=== PATIENT | male | born 1970 | race Caucasian/White ===

== ENCOUNTER → 2017-09-24 | Outpatient (CLI) | payer OTHER ==
[~2017-09-24] VITALS: Ht 176.5 cm; Wt 89.7 kg
[~2017-09-24] MED LIST: ALBU1AER9 INH; FEXO1TAB49 PO; METF-384 PO
[2017-09-24 12:44] VITALS: BP 102/71; PULSE 90; Ht 176.5 cm; Wt 89.7 kg
== END | disposition home or self-care (01) ==
LOC: C.NEUR 12:05
PROVIDERS: ATTEND Internal Medicine Pulmonary Disease
DX: R06.83 Snoring (principal); G47.19 Other hypersomnia; R53.83 Other fatigue

== ENCOUNTER → 2017-10-15 | Outpatient (CLI) | payer OTHER ==
--- NOTE | 2017-10-16 04:47 | PAP/PSG TECHNICIAN REPORT ---
[facility] Rn Perioperative Polysomnogram Report Study name: None Report date: 10/16/2017 Study date: 10/15/2017 Referring Physician: DR. BLACK Name: ELIS GARCÍA Interpreting Physician: Carlos Black M.D. Date of : 1970 Rn Perioperative: Dante Beckham RPSTAWANA. Sex: Male Age: 47 StudyType: PSG Weight: 197 lbs 16 inches Height: 47 years, Height 5' 9.5" Neck Circum: BMI: 28.67 Medications: LISINOPRIL 10 MG, METFORMIN HCL 1000 MG Patient History PATIENT HAS HISTORY OF DAYTIME SLEEPINESS AND SEVERE SNORING. HE IS HERE TODAY FOR AN EVALUATION FOR [facility]. ESS = 23 RM 1 Parameters Monitored NPSG: E1-M2, E2-M1, Fp1-M2, Fp2-M1, F3-M2, F4-M2, F4-M1, C3-M2, C4-M2, C4-M1, O1-M2, O2-M2, O2-M1, T3-M2, T4-M1, P3-M2, P4-M1, CHIN1, CHIN2, HR, EKG, Legs, PFLOW, SNOR, FLOW, CFLOW, Tidal Volume, THOR, ABDO, SpO2, PLTH, CPRESS, ETCO2 Wave, ETCO2, pH Sleep Architecture Sleep Stages Time at Lights Off 9:57:53 PM STAGES Time (min.) TST (%) Time at Lights On 4:07:23 AM Wake 23.0 -- Total Recording Time (TRT) 370.00 min. N1 13.5 4 Total Sleep Period (TSP) 354.5 min. N2 229.5 66 Total Sleep Time (TST) 346.5min. N3 33.0 10 Awake Time 23.5 min. REM 70.5 20 Wake after Sleep Onset 12.0 min. Sleep Efficiency (SE) 94 % Sleep Onset Latency (CONSTANTINO) 11.0 min. Number of Stage 1 Shifts None Awakenings 15 Stage Changes 63 Number of REM periods 8 REM 70.5 20 REM Latency 66.0 min. NREM 276.0 80 Body Position Analysis Supine Right Left Side Prone Vertical Total Sleep Time (min.) 244.9 89.5 34.3 123.74 0.0 0.0 Total Sleep Time (%) 64% 26% 10% 36 0% N/A% Total Sleep Time REM (min.) 43.5 27.0 0.0 None 0.0 0.0 Total Sleep Time NREM (min.) 179.3 62.5 34.3 None 0.0 0.0 Intermittent Wake (min.) 22.1 0.5 0.4 None 0.0 0.0 Total Sleep Period (%) 65% None None None None None Arousals Myoclonus (PLM) * Events Count Index Events Count Index Spontaneous 20 3 Events Awake (PLMW) 17 44.3 Respiratory 6 1.2 Events Asleep w/ Arousal (PLMA) 8 1.4 PLM 8 1 Events Asleep w/o Arousal (PLMS) 52 9.0 Snoring 10 2 Total Asleep 60 10.4 Total 44 8 Total 77 13 Respiratory Analysis * CA OA MA CH H RERA Total Count 0 4 0 0 43 4 47 Index 0.0 0.7 0.0 0 7.4 1 8.8 Mean Duration 0.0 11.4 0.0 0.00 17.7 14.7 16.9 Longest Duration 0.0 12.4 0.0 0.00 0.0 15.9 28.9 Respiratory Event Summary Total Supine ~Supine Right Left Prone REM NREM Apneas Count 4 4 0 0 0 N/A 4 0 Index 0.7 1 0 0.0 0.0 N/A 3 0 Hypopneas (4% Desat) Count 43 42 1 1 0 N/A 20 23 Index 7.4 11.3 0 0.7 0.0 N/A 17.0 5.0 Apneas & All Hypopneas Count 47 46 1 1 0 N/A 24 23 Index 8.1 12 0 1 0 N/A 20.4 5.0 Respiratory Events (Hobbing Machine Operator+All Hyp+RERA) Count 47 50 1 1 0 N/A 24 23 Index 8.8 13 0 0.7 0.0 N/A 20.4 5.9 Respiratory Related Arousal Count 6 50 0 0 0 N/A 2 5 Index 1.2 2 0 0 0 N/A 2 1 Snoring Analysis Supine Right Left Prone REM NREM Total Snore duration 18.9 min Snores count 853 121 116 N/A 76 1,014 1,090 Snore mean duration 1.0 Sec Snores index 230 81 203 N/A 64.7 220.4 188.7 TST with snoring (%) 5.5% Desaturation Event Summary: Minimum %SpO2 Event Count Mean/Min/Max Duration(sec.) Desaturation Index % Time In Bed > 90 46 30.0 / 6.0 / 58.0 9.3 80.5 86 - 90 11 17.0 / 6.0 / 36.3 9.3 19.4 81 - 85 0 N/A 0.0 0.1 76 - 80 0 N/A 0.0 0.0 71 - 75 0 N/A 0.0 0.0 66 - 70 0 N/A 0.0 0.0 61 - 65 0 N/A 0.0 0.0 56 - 60 0 N/A 0.0 0.0 51 - 55 0 N/A 0.0 0.0 < 50 0 N/A 0.0 0.0 Total REM NREM Awake <50% 0.0 min. 0.0 min. 0.0 min. 0.0 min. 51 - 60% 0.0 min. 0.0 min. 0.0 min. 0.0 min. 61 - 70% 0.0 min. 0.0 min. 0.0 min. 0.0 min. 71 - 80% 0.0 min. 0.0 min. 0.0 min. 0.0 min. 81 - 90% 71.5 min. 18.9 min. 49.5 min. 3.2 min. 91 - 100% 295.8 min. 51.6 min. 226.5 min. 17.6 min. Average 92 92 92 92 Minimum SpO2 84 84 86 86 Desaturation Event Index 7.6 21.3 4.6 5.2 # Desat. Events below 89% 20 15 3 2 Time(%) with Saturation below 89% 1.9 1.3 0.4 0.2 Time(min.) with Saturation below 89% 7.1 4.9 1.4 0.9 Time (mins) REM (mins) NREM (mins) % of TST SpO2 Below 90% 44 24 N20 5.9 SpO2 Below 88% 7 0 0 1 Heart Rate Analysis Min (bpm) Max (bpm) Average (bpm) Awake 53 101 74 NREM 50 97 64 REM 51 92 70 Overall 50 97 66 Supplemental O2 Values Minimum O2 level: None Value Start Time End Time Rn Perioperative Comments Mr. García slept in the right, left and supine positions. No cardiac arrhythmia noted. Leg movements noted. No bruxism noted. Snoring was noted and scored as a 3 on a scale of 1 through 5. (0=no snoring, 5=snoring loud enough to be heard through a closed door or down the viveros way) Mr. García awoke to use the restroom 1 time during the night. Mr. García stated I slept as well as I do when I am in my own bed. The final report will be interpreted and signed by a sleep physician. The completed physician report will then be placed in the patient medical record. Therapy (cm H2O) 0 TIB (min.) 369.5 TST (min.) 346.5 Sleep Onset (min.) 11.0 REM Onset From Sleep (min.) 66.0 Sleep Efficiency % 94 Wakefulness (%) 6 Wakefulness (min.) 23.5 NREM 1 (%) 4 NREM 1 (min.) 13.5 NREM 2 (%) 66 NREM 2 (min.) 229.5 NREM 3 (%) 10 NREM 3 (min.) 33.0 REM (%) 20 REM (min.) 70.5 # Arousals 44 Arousal Index 8 # Snore 1,090 Snore Index 188.7 AHI 8.1 AHI Supine 12 AHI Non-Supine 0 NREM AHI 5.0 REM AHI 20.4 RDI 8.8 # Obstructive Apnea 4 # Central Apnea 0 # Mixed Apnea 0 # Hypopneas 43 RERAs 4 Total Respiratory Events 51 Time Below SpO2 89% (min.) 6.3 Mean NREM SpO2 (%) 92 Mean REM SpO2 (%) 92 Mean Sleep SpO2 (%) 92 Min NREM SpO2 (%) 86 Min REM SpO2 (%) 84 Position Supine (min.) 244.9 Position Non-supine (min.) 123.7 LM Index Sleep 10.4 LM Index NREM 6.5 LM Index REM 25.5 Mean Heart Rate (bpm) 66 Min Heart Rate (bpm) 50
--- NOTE | 2017-10-19 16:26 | POLYSOMNOGRAPH REPORT ---
CLINICAL DATA: A 47-year-old male with BMI of 28.7, referred by myself and Dr. Oquendo with a history of daytime fatigue and severe snoring. His [place] sleepiness score is 23/24. SLEEP ARCHITECTURE: Total sleep period was 354.5 minutes. Total sleep time was 346.5 minutes divided between 276 minutes of non-REM sleep and 70.5 minutes of REM sleep. Sleep onset latency was 11 minutes. REM latency was 66 minutes. Sleep efficiency was 94%. Wake after sleep onset was 12 minutes. Sleep consisted of stage N1 4%, stage N2 66%, stage N3 10%, and REM 20%. AROUSAL DATA: Forty four arousals recorded for an index of 8 per hour. PERIODIC LIMB MOVEMENT DATA: Sixty limb movements during sleep were noted for an index of 10.4 per hour with arousal index of 1.4 per hour. RESPIRATORY DATA: Mild sleep apnea was documented. The AHI was 8.1. The RDI was 8.8. There were 4 obstructive apneic episodes. The longest apneic episode was 12.4 seconds. There were 43 hypopneic episodes with a mean duration of 17.7 seconds. There were 4 RERAs. The longest RERA was 15.9 seconds. OXIMETRY DATA: Nocturnal hypoxemia was seen. Oxygen carly was 84% during REM. The mean saturation was 92%. Time below 88% was 7 minutes. ECHOCARDIOGRAM: Heart rates ranged from 50-97 beats per minute. No arrhythmias were noted. DEBRIDGING MACHINE OPERATOR'S COMMENTS: The patient slept in the right, left, and supine positions. Snoring was moderate 3 on a scale of 1-5. IMPRESSION: Mild obstructive sleep apnea/hypopnea with an apnea/hypopnea index of 8.1 and a respiratory disturbance index of 8.8 with mild nocturnal hypoxemia. RECOMMENDATIONS: The patient may benefit from a repeat sleep study with CPAP, use of auto CPAP, or use of an oral appliance. Clinical correlation is needed. THERESA
== END | disposition home or self-care (01) ==
LOC: C.NEUR 20:00
PROVIDERS: ATTEND Internal Medicine Pulmonary Disease
DX: G47.19 Other hypersomnia (principal); R53.83 Other fatigue; R06.83 Snoring